=== PATIENT | male | born 1955 | race Hispanic/Latino ===

== ENCOUNTER 2024-09-03 07:50 | Emergency (ER) | payer OTHER ==
[2024-09-03] MEDS ORDERED: Ondansetron PF 4 MG/2 ML Vial ONE (07:57)
[2024-09-03] MEDS ORDERED: Acetaminophen 325 MG TAB ONE (07:57)
[2024-09-03 08:18] LABS: #Basophils Less than 0.03 10x3/uL (0.0-0.2); #Eosinophils 0.19 10x3/uL (0.0-0.5); #Monocytes 0.83 10x3/uL (0.0-1.1); #Neutrophils 6.68 10x3/uL (1.5-8.4); %Basophils 0.1 % (0.0-2.0); %Eosinophils 2.3 % (0.0-6.0); %Lymphocytes 6.8 % (18.0-47.0); %Neutrophils 80.6 % (40.0-75.0); Hematocrit 35.2 % (38.8-50.0); Hemoglobin 11.8 g/dL (13.5-17.5); Mean Corpuscular HGB CONC 33.5 g/dL (32.0-36.0); Mean Corpuscular Hemoglobin 28.9 pg (27.0-33.0); Mean Corpuscular Volume 86.3 fL (81.2-95.1); Mean Platelet Volume 8.6 fL (7.4-10.4); Platelet Count 343 10x3/uL (150-450); RBC Distribution Width 13.2 % (11.5-14.5); Red Blood Cell (RBC) Count 4.08 10x6/uL (4.32-5.72); White Blood Cell (WBC) Count 8.29 10x3/uL (3.5-10.5)
[2024-09-03 08:37] LABS: ALT (SGPT) 13 U/L (Less than 45); AST (SGOT) 34 U/L (11-34); Albumin 3.8 g/dL (3.1-4.5); Alkaline Phosphatase 209 U/L (40-110); Anion Gap 14 mmol/L (10-20); BUN (Urea Nitrogen) 9 mg/dL (8.4-25.7); Bilirubin, Total 0.5 mg/dL (0.3-1.2); Calc. Creatinine Clearance 0 mL/min (70-130); Calcium 9.1 mg/dL (7.8-10.44); Carbon Dioxide 18 mmol/L (23-31); Chloride 98 mmol/L (98-107); Estimated GFR 98; Globulin 4.1 g/dL (2.4-3.5); Glucose 133 mg/dL (83-110); Potassium 3.4 mmol/L (3.5-5.1); Protein, Total 7.9 g/dL (5.8-8.1); Sodium 127 mmol/L (136-145)
== END 2024-09-03 09:21 | disposition home or self-care (01) ==
LOC: CSHERS 07:50 → EEVIPCON 07:50 → CSHERS 09:21
DX: S02.2XXA Fracture of nasal bones, initial encounter for closed fracture (principal); E87.1 Hypo-osmolality and hyponatremia; S06.9X1A Unspecified intracranial injury with loss of consciousness of 30 minutes or less, initial encounter; E78.5 Hyperlipidemia, unspecified; I10 Essential (primary) hypertension; W18.2XXA Fall in (into) shower or empty bathtub, initial encounter; Y93.89 Activity, other specified
CPT/HCPCS: 36415; 70450; 70486; 72125; 80053; 85025; 93005; J2405